=== PATIENT | female | born 1975 | race American Indian/Alaskan Native ===

== ENCOUNTER 2016-10-01 22:24 | Emergency (ER) | payer OTHER, BC ==
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
[2016-10-02] MEDS ORDERED: NORCO 10/325 PO ONE (01:29)
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
[2016-10-02 04:44] VITALS: BP 120/75
== END 2016-10-02 04:44 | disposition home or self-care (01) ==
LOC: ED 22:24
DX: S16.1XXA Strain of muscle, fascia and tendon at neck level, initial encounter (principal); S29.012A Strain of muscle and tendon of back wall of thorax, initial encounter; V43.62XA Car passenger injured in collision with other type car in traffic accident, initial encounter; Y92.488 Other paved roadways as the place of occurrence of the external cause; Y93.89 Activity, other specified; Y99.8 Other external cause status
CPT/HCPCS: 72125; 72128; 81025